=== PATIENT | female | born 1995 | race Two or more races ===

== ENCOUNTER 2020-09-19 22:42 | Emergency (ER) | payer MEDICAID, OTHER ==
[~2020-09-19] VITALS: Ht 160 cm; Wt 90.7 kg
[2020-09-19 22:42] VITALS: BP 124/70
[2020-09-20] MEDS ORDERED: KETOROLAC TROMETH 60MG/2ML VIAL IM ONE (03:15)
== END 2020-09-20 05:53 | disposition home or self-care (01) ==
LOC: ER 22:42
DX: S39.012A Strain of muscle, fascia and tendon of lower back, initial encounter (principal); G44.319 Acute post-traumatic headache, not intractable; V49.59XA Passenger injured in collision with other motor vehicles in traffic accident, initial encounter; Y93.89 Activity, other specified; Y92.488 Other paved roadways as the place of occurrence of the external cause; Y99.8 Other external cause status
CPT/HCPCS: 70450; 72070; 72100; 96372; 99284; J1885